=== PATIENT | male | born 2000 | race Caucasian/White ===

== ENCOUNTER 2023-12-17 21:38 | Inpatient (IN) | payer OTHER, SELFPAY ==
[2023-12-17] VITALS (8 sets, daily range): BP systolic 101–128; BP diastolic 58–83; BMI 17.5
--- NOTE | 2023-12-17 15:44 | ED.GENMED ---
History of Present Illness
General
Chief Complaint: Overdose Unintentional
Source: family (Mother)
Time Seen by Provider: 12/17/23 15:27
Travel History
Have you had any contact with someone who has COVID-19?: No
Do you have any symptoms of coronavirus? Fever > 100 degrees, chills, cough, shortness of breath, sore throat, loss of taste or smell, muscle aches, or headache?: No
History of Present Illness
History of Present Illness:
24-year-old male brought to the emergency room by his mom from the police station. Patient was arrested after nodding off at a light while driving home from a job interview in [place]. Patient was process at the police station where blood was
drawn for forensic testing. During his time in the police station he became more somnolent. Mom arrived to try to take him home he was not able to walk on his own. Here the patient is unresponsive and unable to provide a history
Past History
Past History
ED Past Medical History: None
ED Past Surgical History: None
Phy Exam
Physical Exam
Physical Exam:
General: Sleeping, arouses minimally to painful stimulus. Breathing spontaneously. Adequate oxygenation without supplemental oxygen
Vitals: Bradycardic
Head: Atraumatic
Eyes: Pupils equal, EOMI
Throat: Airway intact, no exudates
Neck: Trachea midline
Lungs: Clear and equal b/l
Heart: Regular rate, no murmurs
Abd: Soft, Nontender, No pulsatile mass
Neuro: Unresponsive
Skin: Warm, dry, no rash
Extremities: pulses equal b/l, no edema
Course
Orders/Labs/Results
Orders:
Orders
12/17/23 Dinner
NPO
Allow oral meds: No
Allow clear liquids: No
12/17/23 15:40
Naloxone [Narcan] 0.4 mg IV NOW STA
12/17/23 15:43
Electrocardiogram (*1) Stat
Reason for Study: Other
Other Reason for Exam: overdose
Cardiac Monitoring- Treatment ONCE
EKG- Treatment ONCE
0.9% Sodium Chloride 1000 ml [Nss] 1,000 ml IV BOLUS
12/17/23 15:45
Acetaminophen Urgent
Alcohol Urgent
Complete Blood Count/With Diff Urgent
Comprehensive Metabolic Panel Urgent
Salicylate Urgent
12/17/23 19:51
Fentanyl, Urine Urgent
Urine Drug Abuse Screen Urgent
Date Specimen was Collected: 12/17/23
Time Specimen was Collected: 19:50
12/17/23 20:17
CT Head W/o Iv Contrast Urgent
Comment:
Reason For Exam: altered mental status
12/17/23 20:44
Add On- LAB Urgent
Tests Added?: urine fentanyl
12/17/23 21:25
Admit/Transfer Patient As Directed
Co-Sign Provider:
Level of Care: Inpatient admission
Assign to:: Telemetry
Physician / Group: stephane
Diagnosis: drug overdose
Reason for Telemetry: Arrhythmia
Date to Stop Telemetry: 12/20/23
Time to Stop Telemetry: 11:00
Reason for Hospitalization: drug overdose
Expected length of stay greater than two midnights?: Yes
ELOS- Estimated Length of Stay in days: 2
I certify the patient meets the requirements for IP care: Yes
12/17/23 21:26
Code Status As Directed
Resuscitation Status: Full Code
12/17/23 22:52
0.9% Sodium Chloride 1000 ml [Nss] 1,000 ml IV 100 mls/hr
12/17/23 22:52
1:1 Observation - Suicide/ Violent Behavior As Directed
Activity As Directed
Activity Level: As Tolerated
Vital Signs As Directed
Frequency: Per unit guidelines
DX Deep Vein Thrombosis Video Routine
12/18/23 05:52
Complete Blood Count/With Diff IN AM
Comprehensive Metabolic Panel IN AM
12/18/23 08:00
Heparin 5,000 units SC Q12
12/20/23 11:00
DC Protocol for Telemetry ONCE
Abnormal Lab Results
12/17/23 12/17/23
15:45 19:51
WBC 13.3 H 10^3/uL
(4.8-10.8)
RBC 4.56 L 10^6/uL
(4.70-6.10)
MCH 31.8 H pg
(27.0-31.0)
MPV 10.7 H fL
(7.4-10.4)
Absolute Neuts (auto) 12.3 H 10^3/uL
(1.4-6.5)
Absolute Lymphs (auto) 0.5 L 10^3/uL
(1.2-3.4)
Neutrophils % 92.5 H %
(42.2-75.2)
Lymphocytes % 3.8 L %
(20.5-51.1)
Glucose 114 H mg/dl
(70-99)
Salicylates < 1.0 L mg/dl
(2.0-20.0)
Acetaminophen < 10 L ug/ml
(10-30)
U Marijuana (THC) Screen Positive H
(Negative)
12/17/23 15:45
12/17/23 15:45
Vital Signs
Initial and Last Documented VS:
Initial Vital Signs
Temp Pulse Resp BP Pulse Ox
99.5 F 77 18 104/79 98
12/17/23 14:54 12/17/23 14:54 12/17/23 14:54 12/17/23 14:54 12/17/23 14:54
Last Documented Vital Signs
Temp Pulse Resp BP Pulse Ox
98.4 F 77 17 119/74 100
12/18/23 11:24 12/18/23 11:24 12/18/23 11:24 12/18/23 11:24 12/18/23 11:24
MDM/Problems Addressed
Differential Diagnosis Includes:
opiate od, xylazine od, benzo od, pcp od, polypharmacy,
MDM/Problems Addressed:
Patient presents to the emergency room quite sedated. He was observed for several hours that did improve in the sense that he was arousable but he remained confused. He was certainly not able to ambulate. Workup here showed normal head CT.
Essentially normal labs. No evidence of alcohol, salicylate or acetaminophen ingestion. He did have a positive screen for marijuana. Given he is not return to a reasonable mental status after 5 hours of observation the decision was made to
hospitalize him for the night for continued observation and supportive care. Hopefully he will simply metabolize what ever it is he is consumed and be stable for discharge and or rehab placement.
*Radiology
Radiology exam reviewed: radiology read reviewed
*Pulse Oximetry
Patient hypoxic: no
*EKG
Interpreted by ED Provider?: Yes
Interpretation: abnormal
Heart Rate: 51
Rate: bradycardiac
Rhythm: sinus
[place]: normal axis
Interval: normal interval
QRS Pattern: normal QRS
Ischemia: no ischemia
*Director Quality Assurance Interpretation
Rate: bradycardiac
Interpretation: abnormal
Rhythm: sinus
*Critical Care Note
Total Time (30-74mins, 75-104mins- exclusive of procedures): 34 min
comment:
Critical care statement: A total of 34 minutes of critical care time was provided for this patient. This includes management of unstable vital signs, evaluation of the patient at bedside, reviewing the patient's pertinent medical records, discussion
with consultants, review of old EKGs and review of pertinent medical records. This time with separate from time utilized to perform the aforementioned documented procedures
Patient Management
Social determinants of health affecting care: Substance abuse
ED Attending Note
-
Portions of this chart may have been created with voice recognition software.� Occasional wrong word or��sound alike� substitutions may have occurred due to the inherent limitations of voice recognition software.
Discharge Plan
Departure
Patient Disposition: Admit
Date of Disposition: 12/17/23
Time of Disposition: 20:49
Presentation/result/management discussed w/ accepting MD/DO: Hospitalist
Condition: Serious
Discharge Problem:
Altered mental status
Interventions
Interventions:
*Risk Screen - Suicide Last Done: 12/17/23 14:58
*General Assessment Last Done: 12/17/23 14:58
*Neglect/Abuse Screening Last Done: 12/17/23 14:58
ED- Fall Risk Assessment Last Done: 12/17/23 23:00
*ED COVID-19 Vaccine History Last Done: 12/17/23 15:19
*Nursing Disposition Last Done: 12/17/23 23:00
ED- Cardiac Assessment Last Done: 12/17/23 15:19
ED- Neurological Assessment Last Done: 12/17/23 15:40
ED-Psychological Assessment Last Done: 12/17/23 15:19
ED- Pulmonary Assessment Last Done: 12/17/23 15:19
Discharge Date and Time
Discharge Date/Time: 12/17/23 23:00
[2023-12-17 15:56] LABS: % Basophils 0.2 % (0-2); % Immature Granulocytes 0.3 % (0-0.5); % Lymphocytes 3.8 % (20.5-51.1); % Monocytes 3.2 % (1.7-9.3); % Neutrophils 92.5 % (42.2-75.2); Absolute Lymphocytes 0.5 10^3/uL (1.2-3.4); Absolute Monocytes 0.4 10^3/uL (0.1-0.6); Absolute Neutrophils 12.3 10^3/uL (1.4-6.5); Hematocrit 40.9 % (39.0-52.0); Hemoglobin 14.5 g/dL (13.0-18.0); Mean Corp Hgb Conc. 35.5 g/dL (33.0-37.0); Mean Corpuscular Hgb 31.8 pg (27.0-31.0); Mean Corpuscular Volume 89.7 fL (80.0-94.0); Mean Platelet Volume 10.7 fL (7.4-10.4); Nucleated Red Blood Cells % 0 % (-); Platelet Count 197 10^3/uL (130-400); Red Blood Cell Count 4.56 10^6/uL (4.70-6.10); Red Cell Dist. Width 12.6 % (11.5-14.5); White Blood Cell Count 13.3 10^3/uL (4.8-10.8)
[2023-12-17] MEDS: NSS 1000 IV ×2 (15:57→23:20)
[2023-12-17] MEDS: NARCAN 0.400000000000000022 MG IV (15:57)
[2023-12-17 16:05] LABS: Chloride 100 mmol/L (98-107); Potassium 3.9 mmol/L (3.5-5.1); Sodium 139 mmol/L (135-145)
[2023-12-17 16:07] LABS: ALT (SGPT) 19 U/L (0-50); AST (SGOT) 27 U/L (17-59); Acetaminophen < 10 ug/ml (10-30); Albumin 4.7 g/dl (3.5-5.0); Alkaline Phosphatase 77 U/L (38-126); Blood Urea Nitrogen 13 mg/dl (9-20); Calcium 9.2 mg/dl (8.4-10.2); Carbon Dioxide 27 mmol/L (22-30); Estimated Creatinine Clearance > 125 ml/min; Glucose 114 mg/dl (70-99); Salicylate < 1.0 mg/dl (2.0-20.0); Total Bilirubin 0.5 mg/dl (0.2-1.3); Total Protein 7.2 g/dl (6.3-8.2); eGFR > 60.00
[2023-12-17 16:10] LABS: Alcohol None Detected
[2023-12-17 20:21] LABS: Amphetamines Negative (Negative); Barbiturates Negative (Negative); Benzodiazepines Negative (Negative); Buprenorphine Negative (Negative); Cocaine Negative (Negative); Methadone Negative (Negative); Methamphetamines Negative (Negative); Opiates Negative (Negative)
[2023-12-17 20:22] LABS: Marijuana Positive (Negative); Phencyclidine Negative (Negative); Tricyclic Antidepressants Negative (Negative)
[2023-12-17 21:10] LABS: Fentanyl, Urine Negative (Negative)
--- NOTE | 2023-12-17 21:29 | HPS.HSE ---
Family Physician
-
Family Physician: JULIEN Lopez
Chief Complaint
-
altered mental status
History of Present Illness
24-year-old male with past medical history of anxiety, drug use presenting with altered mental status. History is obtained from patient's father and mother. 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 He attended
the interview and called his father while he was driving home and was coherent at that time. Patient apparently was apparently nodding off at a traffic light and apparently the lady in the car behind him was asking him for his keys. Police was
contacted and brought him to the police station. EMS was also contacted apparently noted that his blood pressure was elevated. Mother came to take him home to the police station but he was extremely lethargic and altered and agitated on the way
home so he was brought to the emergency room.
Patient has a history of using marijuana. 3 years ago he used benzodiazepines and opiates and attended rehab at that time. He continues to use marijuana but parents deny any other known drug use. Patient has been in good spirits recently without
any depression recently. Parents do not think that patient overdosed on any of his home medications.
Medical History
Past Medical History
Past Medical History: Reports Other ( anxiety, drug use)
Past Surgical History: Reports None and Tonsilectomy
Social History
Tobacco: Non-smoker
Alcohol: None
Drug: Marijuana
Family History
Family History: Not pertinent
Allergies / Home Medications
Allergies reflects when Allergies were last updated in [employer].
Home Medications with original date entered in [employer]
Allergy/Medication List:
Allergies
Allergy/AdvReac Type Severity Reaction Status Date / Time
chlorpheniramine maleate Allergy Hives Verified 12/17/23 14:51
[From Extendryl]
dexchlorpheniramine maleate Allergy Hives Verified 12/17/23 14:51
[From Extendryl]
methylscopolamine nitrate Allergy Hives Verified 12/17/23 14:51
[From Extendryl]
phenylephrine HCl Allergy Hives Verified 12/17/23 14:51
[From Extendryl]
Home Medications
gabapentin 300 mg capsule 300 mg PO TID 12/17/23
levomefolate calcium 15 mg tablet (L-Methylfolate) 30 mg PO DAILY 12/17/23
trazodone 100 mg tablet 100 mg PO HS 12/17/23
Review of Systems
-
History Source: Patient
A 12 point ROS was completed and negative except as noted: No
Physical Exam
Vital Signs
Vital Signs
Temp Pulse Resp BP Pulse Ox
99.5 F 63 19 119/60 100
12/17/23 14:54 12/17/23 21:00 12/17/23 21:00 12/17/23 21:00 12/17/23 21:00
Physical Exam
General: Well Developed, Well Nourished and No Apparent Distress
HEENT: NormoCephalic, Moist mucous membranes and Atraumatic
Respiratory: Clear
Cardiac: S1/S2 and Regular Rhythm; No Murmur or Rub
GI: Soft, Non Tender, Non Distended and Normal Bowel Sounds; No Organomegaly
Rectal: Deferred by Provider
Musculoskeletal: No Clubbing, No Cyanosis and No Edema
Skin: No Rash
Neuro: Nonfocal/grossly intact and Other (AAOx3 )
Laboratory Results
-
12/17/23 15:45
12/17/23 15:45
Laboratory Results
Total Bilirubin 0.5 mg/dl (0.2-1.3) 12/17/23 15:45
AST 27 U/L (17-59) 12/17/23 15:45
ALT 19 U/L (0-50) 12/17/23 15:45
Alkaline Phosphatase 77 U/L (38-126) 12/17/23 15:45
Data Reviewed
-
Lab Data: Labs Reviewed by me
Old Records: Reviewed
Impression/Plan
-
IMPRESSION:
PLAN:
# Likely drug overdose, unclear drug
#Recent marijuana use
-Patient given naloxone and IV fluids
-Patient AAO x3 at this time but cannot provide accurate history and intermittently falling asleep
-Had episode of vomiting
-CT head shows no acute abnormality
-EKG shows sinus bradycardia with heart rate of 50,
-Blood sugar 140
-Salicylates, Tylenol, fentanyl, alcohol negative
-UDS shows marijuana
-N.p.o. for now until more alert
-Continue IV fluids
-1 to 1 sitter
History of anxiety
-Hold gabapentin/trazodone
History of drug use with marijuana/benzodiazepines
Full code
DVT prophylaxis�heparin
N.p.o.
[2023-12-17] MEDS: ZOFRAN 4 MG IV (23:33)
[2023-12-18 00:03] VITALS: BMI 17.8
--- NOTE | 2023-12-18 01:30 | PTCARENOTE ---
Pt admitted from ED to room 326 at approx 2300. Ambulated from stretcher to bed with assistx1, unsteady on feet. Pt's pupils dilated 4mm bilaterally. Pt intermittently incoherent, at times talking to self. Able to answer some questions, otherwise
restless and fidgeting in bed. Pt accompanied by his father, who is able to assist with admission questions. Pt's father states that pt's mother brought all belongings home. 1:1 present in room. Pt repeatedly saying 'I don't feel good,' but unable
to specify. Refer to MAR for PRN Zofran administration. JULIEN Jade made aware of pt's drug use per protocol. Placed on classroom monitor, NSR. Pt's father suggested staying overnight, nursing toilet and laundry soap supervisor made aware. Recliner provided for father.
Call lamar placed within reach, updated on POC.
[2023-12-18 03:20] VITALS: BP 141/86
[2023-12-18 06:13] LABS: % Basophils 0.2 % (0-2); % Eosinophils 0.2 % (0-6); % Immature Granulocytes 0.4 % (0-0.5); % Lymphocytes 9.6 % (20.5-51.1); % Monocytes 7.8 % (1.7-9.3); % Neutrophils 81.8 % (42.2-75.2); Absolute Lymphocytes 1.1 10^3/uL (1.2-3.4); Absolute Monocytes 0.9 10^3/uL (0.1-0.6); Absolute Neutrophils 9.3 10^3/uL (1.4-6.5); Hematocrit 42.3 % (39.0-52.0); Mean Corp Hgb Conc. 35.5 g/dL (33.0-37.0); Mean Corpuscular Hgb 31.4 pg (27.0-31.0); Mean Corpuscular Volume 88.5 fL (80.0-94.0); Mean Platelet Volume 10.7 fL (7.4-10.4); Nucleated Red Blood Cells % 0 % (-); Platelet Count 207 10^3/uL (130-400); Red Blood Cell Count 4.78 10^6/uL (4.70-6.10); Red Cell Dist. Width 12.3 % (11.5-14.5); White Blood Cell Count 11.3 10^3/uL (4.8-10.8)
[2023-12-18 06:37] LABS: ALT (SGPT) 18 U/L (0-50); AST (SGOT) 28 U/L (17-59); Albumin 4.3 g/dl (3.5-5.0); Alkaline Phosphatase 68 U/L (38-126); Blood Urea Nitrogen 11 mg/dl (9-20); Calcium 9.6 mg/dl (8.4-10.2); Carbon Dioxide 24 mmol/L (22-30); Chloride 103 mmol/L (98-107); Estimated Creatinine Clearance 123 ml/min; Glucose 95 mg/dl (70-99); Potassium 3.9 mmol/L (3.5-5.1); Sodium 141 mmol/L (135-145); Total Bilirubin 0.9 mg/dl (0.2-1.3); Total Protein 6.5 g/dl (6.3-8.2); eGFR > 60.00
[2023-12-18 07:00] VITALS: BP 107/53
[2023-12-18] MEDS: NSS 1000 IV (09:10)
[2023-12-18 11:24] VITALS: BP 119/74
[2023-12-18 12:24] VITALS: BMI 17.8
--- NOTE | 2023-12-18 12:27 | W.DS.TRANS ---
DC Summary - Economic Consultant
-
Discharge Instructions:
Discharge Diagnosis/Procedures Toxic metabolic encephalopathy.
Diet Regular
Instructions:
Stand-Alone Forms:
Changes to Home Medications: No
Discharge Medications:
Home Medication Changes
Pending Results: No
--- NOTE | 2023-12-18 12:39 | CM ---
Addendum entered by Malina Velazquez 12/18/23 13:20:
[facility] notified via phone and they will meet with patient prior to discharge today
Addendum entered by Malina Velazquez 12/18/23 12:57:
Discharge to home today
Original Note:
Met with patient and his mother at bedside; initial assessment completed
[facility]arm[facility] verified[facility]
Patient reports that he lives with his parents in a multilevel home; 3 steps to enter; 12-13 steps between floors; powder room on the 1st floor; bathroom has tub with shower
Patient reports he is independent with ambulation, steps, and ADLs; drives; currently out of work
Mother will provide transport home
Offer to see [facility] counselor accepted
Plan: discharge to home when stable; services determination pending
== END 2023-12-18 15:05 | disposition home or self-care (01) | DRG 917 ==
LOC: 3 WEST ACU 21:38
PROVIDERS: ADMITTING PHYSICIAN Hospitalist; ATTENDING PHYSICIAN Internal Medicine; EMERGENCY PHYSICIAN Emergency Medicine; FAMILY PHYSICIAN Nurse Practitioner Family
DX: T40.711A Poisoning by cannabis, accidental (unintentional), initial encounter (principal); G92.8 Other toxic encephalopathy; F41.9 Anxiety disorder, unspecified
CPT/HCPCS: 70450; 80053; 80143; 80179; 80306; 80307; 82077; 85025; 93005; 96361; 96374; 99285; 99406

== ENCOUNTER 2025-06-29 17:53 | Emergency (ER) | payer SELFPAY ==
[2025-06-29 17:56] VITALS: BP 124/76
--- NOTE | 2025-06-29 18:56 | ED.SKININJ ---
HPI-Injury
General
Chief Complaint: Skin Surface Trauma
Source: patient
Exam Limitations: none
Time Seen by Provider: 06/29/25 18:33
Nursing documentation reviewed up to this point in time: agreed with
History of Present Illness-Injury
Is this injury a work related problem?: Yes
Is pt an associate of [facility]?: No
Initial Injury comments:
Patient to ED with complaint of laceration to left palmar 3rd finger. Accidentally cut finger with knife. Incident occurred today. Brought self to ED for eval.
Past History
Past History
ED Past Medical History: None
ED Past Surgical History: None
Review of Systems
Review of Systems
Allergies reviewed?: Yes
All Other Systems: ROS reviewed and negative except as documented in HPI and ROS
Constitutional: Reports no symptoms
Musculoskeletal: Reports no symptoms
Skin: Reports no symptoms (laceration to palmar surface of left 3rd finger)
Neurological: Reports no symptoms
Psychiatric: Reports no symptoms
Skin Exam
Laceration
Left Palmar Third Finger:
Length in cm: 1
Orientation: horizontal
Type of Laceration: simple
Any active bleeding?: no active bleeding
Distal skin color and temperature: normal-warm & good color
Normal distal neurovascular exam: Yes
Range of motion: full
Phy Exam
General Physical Exam
General Presentation: well appearing and no apparent distress
General age: appears stated age
General Skin: warm and dry
General Habitus: normal
Musculoskeletal Exam
Musculoskeletal Exam: full ROM and neuro vasc intact
Skin Exam
Skin Exam: normal color, warm/dry and no rash
Psychiatric Exam
Psychiatric Exam: normal mood/affect
Course
Orders/Labs/Results
Orders:
Orders
06/29/25 18:47
Crisis Consult Urgent
Reason for Consult: requesting to speak to someone
Vital Signs
Initial and Last Documented VS:
Initial Vital Signs
Temp Pulse Resp BP Pulse Ox
98 F 91 16 124/76 97
06/29/25 17:56 06/29/25 17:56 06/29/25 17:56 06/29/25 17:56 06/29/25 17:56
Last Documented Vital Signs
Temp Pulse Resp BP Pulse Ox
98 F 91 16 124/76 97
06/29/25 17:56 06/29/25 17:56 06/29/25 17:56 06/29/25 17:56 06/29/25 19:01
Procedures
Laceration Closure
Left Proximal Palmar Third Finger:
Status of Wound: clean
Description of Wound Edges: sharp
Preparation: cleaned with saline
Revision/Debridement: routine- no revision
Wound exploration: explored to base- no FB and no tendon involvement
Type of Closure: Dermabond-skin glue
*Pulse Oximetry
SaO2: 97
Oxygen Mode of Delivery: Room air
Patient hypoxic: no
*Critical Care Note
Total Time (30-74mins, 75-104mins- exclusive of procedures): Not Applicable
Update Note
Update Note:
Patien to ED for laceration repair to left palmar 3rd finger. Also reports history of psychiatric issues. Requesting to speak with crisis tonight. Pilar GARIBAY SI. Crisis consult placed
ED Attending Note
-
Portions of this chart may have been created with voice recognition software.� Occasional wrong word or��sound alike� substitutions may have occurred due to the inherent limitations of voice recognition software.
Discharge Plan
Departure
Patient Disposition: Home (Routine Discharge)
Date of Disposition: 06/29/25
Time of Disposition: 19:17
Patient with high blood pressure during this ER visit?: No
Condition: Good
Covid-19: Not Applicable
Discharge Problem:
Finger laceration
Instructions: Laceration Repair With Glue (DC)
Prescriptions:
No Action
No Current Medications
0
Referrals:
Kip Oneal CRNP [Family Provider, Family Practice] - As needed
Interventions
Interventions:
*Risk Screen - Suicide Last Done: 06/29/25 18:04
*Neglect/Abuse Screening Last Done: 06/29/25 18:04
*Nursing Disposition Last Done: 06/29/25 19:20
ED-Skin Assessment Last Done: 06/29/25 18:36
Discharge Date and Time
Discharge Date/Time: 06/29/25 19:20
Print Language: FAROESE
== END 2025-06-29 19:20 | disposition home or self-care (01) ==
LOC: EMR 17:53
PROVIDERS: EMERGENCY PHYSICIAN Emergency Medicine; FAMILY PHYSICIAN Nurse Practitioner Family
DX: S61.213A Laceration without foreign body of left middle finger without damage to nail, initial encounter (principal); W26.0XXA Contact with knife, initial encounter
CPT/HCPCS: 12001; 99282